=== PATIENT | male | born 1955 | race African-American/Black ===

== ENCOUNTER 2016-08-23 16:43 | Emergency (ER) | payer OTHER ==
[~2016-08-23] VITALS: Ht 193 cm; Wt 99.3 kg
[~2016-08-23 16:43] MED LIST: levothyroxine
[2016-08-23 17:33] VITALS: BP 133/83
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
== END 2016-08-23 18:15 | disposition left against medical advice (07) ==
LOC: ER 16:43
DX: S16.1XXA Strain of muscle, fascia and tendon at neck level, initial encounter (principal); M54.5 Low back pain; M25.512 Pain in left shoulder; R51 Headache; M54.42 Lumbago with sciatica, left side; M54.41 Lumbago with sciatica, right side; R00.0 Tachycardia, unspecified; E89.0 Postprocedural hypothyroidism; V49.49XA Driver injured in collision with other motor vehicles in traffic accident, initial encounter; Y93.89 Activity, other specified; Y92.89 Other specified places as the place of occurrence of the external cause; Y99.8 Other external cause status
CPT/HCPCS: 99281